=== PATIENT | female | born 1990 | race Caucasian/White ===

== ENCOUNTER 2023-06-22 04:33 | Emergency (ER) | payer OTHER, SELFPAY ==
[2023-06-22 04:43] VITALS: BP 120/90; PULSE 78; RESP 18; TEMP 36.6; O2SAT 98; BMI 37.6
--- NOTE | 2023-06-22 05:00 | ED.NAVMDI1 ---
HPI - Nausea/Vomiting/Diarrhea General Chief complaint: Nausea/Vomiting/Diarrhea Stated complaint: FEVER, VOMITING Time Seen by Provider: 06/22/23 04:56 Source: patient Mode of arrival: walk-in History of Present Illness HPI Narrative: patient presents with recurrent nausea and vomiting on and off over the past 3 days. Episode of diarrhea this AM. Abdominal pain before vomiting.No fever. No known exposure to someone ill. Feels lightheaded MD elicited complaint: Reports nausea, vomiting, diarrhea and abdominal pain Related Data Home Medications Medication Instructions Recorded Confirmed fluoxetine 20 mg capsule (Prozac) 20 mg PO DAILY 06/22/23 06/22/23 fluoxetine 20 mg tablet 20 mg PO DAILY 06/22/23 06/22/23 gabapentin 300 mg capsule 300 mg PO DAILY 06/22/23 06/22/23 Allergies Allergy/AdvReac Type Severity Reaction Status Date / Time No Known Drug Allergies Allergy Verified 06/22/23 04:50 Review of Systems ROS Status of ROS 10 or more systems reviewed and unremarkable except as noted in history and below Exam Constitutional Vital Signs, click to edit/add: Last Vital Signs Temp 97.9 F 06/22/23 04:43 Pulse 78 06/22/23 04:43 Resp 18 06/22/23 04:43 BP 120/90 06/22/23 04:43 Pulse Ox 98 06/22/23 04:43 O2 Del Method Room Air 06/22/23 04:43 Common normals: no apparent distress, oriented x3, healthy appearing and alert Eye Common normals: EOMs intact bilaterally, conjunctivae normal and no scleral icterus Respiratory Common normals: normal respiratory effort, no retractions, no use of accessory muscles and clear to auscultation bilaterally Cardio Common normals: regular rate, regular rhythm, S1 normal heart sound and S2 normal heart sound GI Common normals: Normal to inspection, nondistended, normoactive bowel sounds present, soft to palpation and non-tender Extremity Common normals: normal to inspection and full ROM Neuro Common normals: oriented x3, CN's II-XII intact bilaterally, moves all extremities, no focal motor deficits and no sensory deficits noted Psych Appearance: grossly normal Course Vital Signs Vital signs: Vital Signs Temperature 97.9 F 06/22/23 04:43 Pulse Rate 78 06/22/23 04:43 Respiratory Rate 18 06/22/23 04:43 Blood Pressure 120/90 06/22/23 04:43 Pulse Oximetry 98 06/22/23 04:43 Oxygen Delivery Method Room Air 06/22/23 04:43 Temperature 97.9 F 06/22/23 04:43 Pulse Rate 78 06/22/23 04:43 Respiratory Rate 18 06/22/23 04:43 Blood Pressure 120/90 06/22/23 04:43 Pulse Oximetry 98 06/22/23 04:43 Oxygen Delivery Method Room Air 06/22/23 04:43 MDM - Nausea/Vomiting/Diarrhea MDM Narrative Medical decision making narrative: patient presents with complaint of recurrent vomiting for past 3 days. Not able to keep down broth. episode of diarrhea today. No hematemesis or fever. Feels weak and light headed. treatment includes IV hydration and anti emetics. CT abdomen ordered and report pending. will plan transfer of care to the oncoming physician. Patient to receive additional hydration. Disposition pending evaluation by Dr Paul Lab Data Labs: Lab Results 06/22/23 06/22/23 06/22/23 Range/Units 04:52 05:00 05:10 WBC 8.4 (4.0-11.0) 10^3/uL RBC 4.89 (4.20-5.40) 10^6/uL Hgb 13.0 (12.0-16.0) g/dL Hct 40.5 (36.0-48.0) % MCV 82.8 (81.0-99.0) fL MCH 26.6 L (26.7-34.0) pg MCHC 32.1 (29.9-35.2) g/dL RDW 13.4 (11.0-15.0) % Plt Count 314 (150-450) 10^3/uL MPV 10.0 (9.5-13.5) fL Neut % (Auto) 65.2 (43.0-75.0) % Lymph % (Auto) 28.0 (20.5-60.0) % [place] % (Auto) 4.9 (1.7-12.0) % Eos % (Auto) 1.3 (0.9-7.0) % Baso % (Auto) 0.4 (0.2-2.0) % Neut # (Auto) 5.5 (1.4-6.5) 10^3/uL Lymph # (Auto) 2.3 (1.2-3.8) 10^3/uL [place] # (Auto) 0.4 (0.3-0.8) 10^3/uL Eos # (Auto) 0.1 (0.0-0.7) 10^3/uL Baso # (Auto) 0.0 (0.0-0.1) 10^3/uL Abs Immat Gran (auto) 0.02 (0.00-0.03) 10^3/uL Imm/Tot Granulo (auto) 0.2 (0.0-0.5) % Sodium 137 (136-145) mmol/L Potassium 3.7 (3.5-5.1) mmol/L Chloride 103 (98-107) mmol/L Carbon Dioxide 25.9 (21.0-32.0) mmol/L Anion Gap 11.8 BUN 12.0 (7.0-18.0) mg/dL Creatinine 0.85 (0.55-1.02) mg/dL Est GFR ( Amer) >60 (>=60) Est GFR (Non-Af Amer) >60 (>=60) BUN/Creatinine Ratio 14.1 Glucose 107 H (74-106) mg/dL Lactate 0.8 (0.4-2.0) mmol/L Calcium 9.1 (8.5-10.1) mg/dL Total Bilirubin 0.3 (0.2-1.0) mg/dL AST 16 (15-37) U/L ALT 19 (14-59) U/L Alkaline Phosphatase 86 (46-116) U/L Troponin I High Sens 5.2 (4.0-51.3) pg/mL Total Protein 7.5 (6.4-8.2) g/dL Albumin 3.8 (3.4-5.0) g/dL Globulin 3.7 g/dL Albumin/Globulin Ratio 1.0 Lipase 45.0 L (73.0-393.0) U/L Urine Color Yellow (YELLOW) Urine Clarity Clear (CLEAR) Urine pH 5.5 (5.0-9.0) Ur Specific [place] >=1.030 A (1.005-1.025) Urine Protein Negative (NEG/TRACE) mg/dL Urine Glucose (UA) Negative (NEGATIVE) mg/dL Urine Ketones Negative (NEGATIVE) mg/dL Urine Occult Blood Trace-i (NEGATIVE) Urine Nitrite Negative (NEGATIVE) Urine Bilirubin Negative (NEGATIVE) Urine Urobilinogen 0.2 (0.2-1.0) EU/dL Ur Leukocyte Esterase Small A (NEGATIVE) Urine RBC 5-10 A (0-2) #/HPF Urine WBC 20-50 A (NONE SEEN) #/HPF Ur Squamous Epith Cells Many A (NONE/RARE) #/LPF Urine Crystals Seen A (None Seen) #/HPF Amorphous Sediment Rare Urine Bacteria Moderate A (NONE SEEN) #/HPF Urine Casts None seen (NONE SEEN) #/LPF Urine Mucus Small A (NONE SEEN) Urine Yeast Seen A (NONE SEEN) Ur Culture Indicated? Yes Adenovirus (PCR) Not detected (NOT DETECTE) C. pneumoniae DNA (PCR) Not detected (NOT DETECTE) Coronavirus Type OC43 Not detected (NOT DETECTE) Coronavirus Type HKU1 Not detected (NOT DETECTE) Coronavirus Type 229E Not detected (NOT DETECTE) Coronavirus Type NL63 Not detected (NOT DETECTE) Human Metapneumovir PCR Not detected (NOT DETECTE) M. pneumoniae (PCR) Not detected (NOT DETECTE) Parainfluenza PCR Not detected (NOT DETECTE) Parainfluenza 2 (PCR) Not detected (NOT DETECTE) Parainfluenza 3 (PCR) Not detected (NOT DETECTE) Parainfluenza 4 (PCR) Not detected (NOT DETECTE) RSV (RT-PCR) Not detected (NOT DETECTE) Entero/Rhino (PCR) Not detected (NOT DETECTE) SARS-CoV-2 (PCR) Not detected (NOT DETECTE) Bordetella pertussis (PCR) Not detected (NOT DETECTE) B parapertussis DNA PCR Not detected (NOT DETECTE) Influenza Type A (PCR) Not detected (NOT DETECTE) Influenza Type B (PCR) Not detected (NOT DETECTE) Discharge Plan Discharge Chief Complaint: Nausea/Vomiting/Diarrhea Clinical Impression: Gastroenteritis Patient Disposition: Still a Patient Prescriptions / Home Meds: No Action fluoxetine 20 mg tablet 20 mg PO DAILY gabapentin 300 mg capsule 300 mg PO DAILY fluoxetine [Prozac] 20 mg capsule 20 mg PO DAILY Referrals: ODETTE RODRIGUEZ [Primary Care Provider] - 1 week
--- NOTE | 2023-06-22 05:02 | XR_ITS ---
The [address] [address] Patient Name: SHARIF STOUT MRN: [id number] date: 1990 Sex: F Assigned Patient Location: ER Current Patient Location: ER Accession/Order Number: [id number] Exam Date: 06/22/2023 05:10 Report Date: 06/22/2023 05:29 At the request of: KENDRA TERRY Procedure: XR chest 1V EXAMINATION: XR chest 1V HISTORY: nausea and vomiting COMPARISON: XR chest 03/04/2015 FINDINGS: LUNGS: No significant pulmonary parenchymal abnormalities. VASCULATURE: No increased pulmonary vasculature. PLEURA: No pneumothorax, effusion, or pleural thickening. CARDIAC: No cardiomegaly or cardiac silhouette abnormality. MEDIASTINUM: No visible mass or adenopathy. BONES: No fracture or visible bone lesion. OTHER: Negative. XR/XR chest 1V IMPRESSION: 1. No acute cardiopulmonary process. Electronically authenticated by: EDWIN NORTH Date: 06/22/2023 05:29
[2023-06-22 05:15] LABS: Adenovirus NOT DETECTED (NOT DETECTE); Bordetella parapertussis NOT DETECTED (NOT DETECTE); Coronavirus 229E NOT DETECTED (NOT DETECTE); Coronavirus HKU1 NOT DETECTED (NOT DETECTE); Coronavirus NL63 NOT DETECTED (NOT DETECTE); Coronavirus OC43 NOT DETECTED (NOT DETECTE); Human Metapneumovirus NOT DETECTED (NOT DETECTE); Human Rhinovirus/Enterovirus NOT DETECTED (NOT DETECTE); Influenza A NOT DETECTED (NOT DETECTE); Influenza B NOT DETECTED (NOT DETECTE); Mycoplasma pneumoniae NOT DETECTED (NOT DETECTE); Parainfluenza Virus 1 NOT DETECTED (NOT DETECTE); Parainfluenza Virus 2 NOT DETECTED (NOT DETECTE); Parainfluenza Virus 3 NOT DETECTED (NOT DETECTE); Parainfluenza Virus 4 NOT DETECTED (NOT DETECTE); Respiratory Syncytial Virus NOT DETECTED (NOT DETECTE); SARS-CoV-2 NOT DETECTED (NOT DETECTE)
[2023-06-22 05:18] LABS: Bilirubin Urine NEGATIVE (NEGATIVE); Blood Urine TRACE-I (NEGATIVE); Clarity Urine CLEAR (CLEAR); Color Urine YELLOW (YELLOW); Glucose Urine UA NEGATIVE (NEGATIVE); Ketones Urine NEGATIVE (NEGATIVE); Leukocyte Esterase Urine SMALL (NEGATIVE); Nitrite Urine NEGATIVE (NEGATIVE); Protein Urine NEGATIVE (NEG/TRACE); Specific Gravity Urine >=1.030 (1.005-1.025); Urobilinogen Urine 0.2 EU/dL (0.2-1.0); pH Urine 5.5 (5.0-9.0)
[2023-06-22 05:19] LABS: Basophils Percent Auto 0.4 % (0.2-2.0); Eosinophils Absolute Auto 0.1 10^3/uL (0.0-0.7); Eosinophils Percent Auto 1.3 % (0.9-7.0); Hematocrit 40.5 % (36.0-48.0); Immature Granulocytes Abs Auto 0.02 10^3/uL (0.00-0.03); Immature Granulocytes Pct Auto 0.2 % (0.0-0.5); Lymphocytes Absolute Auto 2.3 10^3/uL (1.2-3.8); Mean Corpuscular HGB Conc 32.1 g/dL (29.9-35.2); Mean Corpuscular Hemoglobin 26.6 pg (26.7-34.0); Mean Corpuscular Volume 82.8 fL (81.0-99.0); Monocytes Absolute Auto 0.4 10^3/uL (0.3-0.8); Monocytes Percent Auto 4.9 % (1.7-12.0); Neutrophils Absolute Auto 5.5 10^3/uL (1.4-6.5); Neutrophils Percent Auto 65.2 % (43.0-75.0); Platelet Count 314 10^3/uL (150-450); Red Blood Count 4.89 10^6/uL (4.20-5.40); Red Cell Distribution Width 13.4 % (11.0-15.0); White Blood Count 8.4 10^3/uL (4.0-11.0)
[2023-06-22 05:20] LABS: Urine Microscopic Indicated YES
--- NOTE | 2023-06-22 05:20 | PC.NURSE ---
patient c/o nausea, vomiting for 3 days. states the first day she thought it was something she ate. she had headache went to bed, woke up with nausea and vomiting. she states she has been nauseous all day. had an episode of chills and sweats in the morninng without fever. 1 episode of diarrhea this morning. states she has not taken anything. headache has since resolved. no respiratory issues or urinary issues.
--- NOTE | 2023-06-22 05:22 | CT_ITS ---
[address] [place], [place] [address] Patient Name: SHARIF STOUT MRN: [id number] date: 1990 Sex: F Assigned Patient Location: ER Current Patient Location: ED.MAIN Accession/Order Number: [id number] Exam Date: 06/22/2023 06:02 Report Date: 06/22/2023 06:55 At the request of: KENDRA MURRAY Procedure: CT abdomen pelvis w con EXAMINATION: CT abdomen pelvis w con HISTORY: vomiting COMPARISON: No relevant comparison available. TECHNIQUE: CT images were created with IV contrast. Axial, Coronal, and Sagittal images. Dose reduction techniques were achieved by using automated exposure control and/or adjustment of mA and/or kV according to patient size and/or use of iterative reconstruction technique. FINDINGS: LUNG BASES: No visible pulmonary or pleural disease. LIVER: No enlargement, atrophy, abnormal density, or significant focal lesion. BILIARY: No visible dilatation or calcification. PANCREAS: No lesion, fluid collection, ductal dilatation, or atrophy. SPLEEN: No enlargement or focal lesion. ADRENALS: No mass or enlargement. KIDNEYS: No mass, obstruction, or calcification. BOWEL/MESENTERY: No visible mass, obstruction, or bowel wall thickening.Surgical clips from cholecystectomy AORTA/VASCULAR: No aneurysm or dissection. RETROPERITONEUM: No mass or adenopathy. LYMPH NODES: No adenopathy. URINARY BLADDER: No visible focal wall thickening, lesion, or calculus. PELVIC ORGANS: Dilated endometrial cavity, correlate with menstrual cycle. Prominent cervix, nonspecific, no clinical concern for PID per Dr. Murray. Small amount of fluid likely physiologic. Left adnexal clip. ABDOMINAL WALL: No mass or hernia. BONES: No bony lesion or fracture. OTHER: Findings discussed with Dr. Murray by telephone 6:35 am. Dictated later due to technical problems. CT/CT abdomen pelvis w con IMPRESSION: No acute intraperitoneal abnormality Electronically authenticated by: NAIN MILLARD Date: 06/22/2023 06:55
[2023-06-22 05:31] LABS: Bacteria Urine MODERATE #/HPF (NONE SEEN); Mucus Urine SMALL (NONE SEEN); Squamous Epithelial Cell Urine MANY #/LPF (NONE/RARE); WBC Urine 20-50 #/HPF (NONE SEEN)
[2023-06-22 05:32] LABS: Amorphous Sediment Urine RARE; Cast Seen? NONE SEEN #/LPF (NONE SEEN); Crystals Seen? Seen #/HPF (None Seen); Urine Culture Indicated YES
[2023-06-22 05:38] LABS: Alanine Aminotransferase 19 U/L (14-59); Albumin Level 3.8 g/dL (3.4-5.0); Alkaline Phosphatase 86 U/L (46-116); Anion Gap 11.8; Aspartate Amino Transferase 16 U/L (15-37); BUN Creatinine Ratio 14.1; Bilirubin Total 0.3 mg/dL (0.2-1.0); Calcium 9.1 mg/dL (8.5-10.1); Carbon Dioxide 25.9 mmol/L (21.0-32.0); Chloride 103 mmol/L (98-107); Estimated GFR (African America >60 (>=60); Estimated GFR (Non-African Ame >60 (>=60); Globulin 3.7 g/dL; Glucose 107 mg/dL (74-106); Potassium 3.7 mmol/L (3.5-5.1); Sodium 137 mmol/L (136-145); Total Protein 7.5 g/dL (6.4-8.2)
[2023-06-22 05:40] LABS: Lactate/Lactic Acid 0.8 mmol/L (0.4-2.0); Troponin I High Sensitivity 5.2 pg/mL (4.0-51.3)
[2023-06-22] MEDS: 0.9 % SODIUM CHLORIDE 1,000 ML 999 ML IV ×2 (06:02→06:03)
[2023-06-22] MEDS: ONDANSETRON PF 4 MG/2 ML VIAL IV (06:02)
== END 2023-06-22 07:50 | disposition home or self-care (01) ==
PROVIDERS: Emergency Provider Internal Medicine; PCP Nurse Practitioner Family
DX: K52.9 Noninfective gastroenteritis and colitis, unspecified (principal); Z79.899 Other long term (current) drug therapy; Z20.822 Contact with and (suspected) exposure to COVID-19
CPT/HCPCS: 0202U; 36415; 71045; 74177; 80053; 81001; 83605; 83690; 84484; 85025; 87086; 96374; 99285; Q9967

== ENCOUNTER 2023-08-09 10:06 | Emergency (ER) | payer OTHER, SELFPAY ==
[2023-08-09 10:36] VITALS: BP 119/62; PULSE 60; RESP 16; TEMP 36.6; O2SAT 99; BMI 39.5
--- NOTE | 2023-08-09 10:55 | US_ITS ---
The [address] [address] Patient Name: SHARIF STOUT MRN: [id number] date: 1990 Sex: F Assigned Patient Location: ER Current Patient Location: ER Accession/Order Number: [id number] Exam Date: 08/09/2023 11:10 Report Date: 08/09/2023 11:55 At the request of: VERNON BLAIR Procedure: US right upper quadrant EXAM: US right upper quadrant; [id number] HISTORY: pain TECHNIQUE: Real-time sonography of the right upper quadrant was performed. Color and spectral Doppler were used to assess select abdominal vasculature. COMPARISON: CT abdomen/pelvis 06/22/2023. FINDINGS: PANCREAS: Normal appearance of the visualized pancreas. GALLBLADDER: No gallstones or sludge. No gallbladder wall thickening or pericholecystic fluid. BILIARY DUCTS: Extrahepatic bile duct at the poonam hepatis measures 1.4 mm. No intrahepatic or extrahepatic ductal dilatation. RIGHT KIDNEY: Kidney measures 9.2 x 4.6 x 4.6 cm. The kidney is within normal limits for size and echogenicity. No hydronephrosis, solid lesion, or stones demonstrated. Doppler signals within normal limits. LIVER: Within normal limits for size and echogenicity. No focal lesion demonstrated. VASCULATURE: -No thrombus within the proximal hepatic veins. -Antegrade flow in the main portal vein and splenic vein. -Portal vein spectral waveform is within normal limits. US/US right upper quadrant IMPRESSION: Normal ultrasound of the right upper quadrant. Electronically authenticated by: MI MAX Date: 08/09/2023 11:55
--- NOTE | 2023-08-09 10:57 | ED_ITS ---
HPI - General Adult General Chief complaint: Abdominal Pain Stated complaint: NAUSEA/ HEADACHE COVID SYMPTOMS Time Seen by Provider: 08/09/23 10:49 Source: patient Mode of arrival: walk-in Limitations: no limitations History of Present Illness HPI narrative: 33-year-old female presents for intermittent pain and vomiting. She has been having this for a month. It seems it started in her upper back and it goes to he r shoulders and then her stomach hurts and then she'll vomit. She'll have it intermittently for a few days and it goes away. She was seen here a month ago and had a negative CAT scan of her abdomen. She seems to be concerned about her gallbladder. Related Data Home Medications Medication Instructions Recorded Confirmed fluoxetine 20 mg capsule (Prozac) 20 mg PO DAILY 06/22/23 06/22/23 fluoxetine 20 mg tablet 20 mg PO DAILY 06/22/23 06/22/23 gabapentin 300 mg capsule 300 mg PO DAILY 06/22/23 06/22/23 Previous Rx's Medication Instructions Recorded ondansetron 8 mg disintegrating 8 mg PO Q8H PRN nausea and 06/22/23 tablet vomiting 48 hours #6 tabs esomeprazole magnesium 40 mg 40 mg PO DAILY 28 days #28 caps 08/09/23 capsule,delayed release (Nexium) Allergies Allergy/AdvReac Type Severity Reaction Status Date / Time No Known Drug Allergies Allergy Verified 08/09/23 10:36 Review of Systems ROS Narrative A ten point review of systems is negative except as noted above. Exam Narrative Exam Narrative: Nurses note and vital signs reviewed and patient is not hypoxic. General: The patient appears well and in no apparent distress. Patient is resting comfortably on cart. Skin: Warm, dry, no pallor noted. There is no rash noted. Head: Normocephalic, atraumatic Eye: Normal conjunctiva, no drainage Ears, Nose, Mouth, and Throat: oral mucosa is moist. Nares patent. Cardiovascular: Regular Rate and Rhythm Respiratory: Patient is in no distress, no accessory muscle use, lungs are clear to auscultation, no wheezing, rales or rhonchi Back: non-tender GI: Normal bowel sounds, no tenderness to palpation, no masses appreciated. No rebound, guarding, or rigidity noted. Musculoskeletal: The patient has no evidence of calf tenderness, no pitting edema, symmetrical pulses noted bilaterally Neurological: A&O, normal speech Psychiatric: Cooperative, mildly anxious Constitutional Vital Signs, click to edit/add: Last Vital Signs Temp 98 F 08/09/23 10:36 Pulse 60 08/09/23 10:36 Resp 16 08/09/23 10:36 BP 119/62 08/09/23 10:36 Pulse Ox 99 08/09/23 10:36 Course Vital Signs Vital signs: Vital Signs Temperature 98 F 08/09/23 10:36 Pulse Rate 60 08/09/23 10:36 Respiratory Rate 16 08/09/23 10:36 Blood Pressure 119/62 08/09/23 10:36 Pulse Oximetry 99 08/09/23 10:36 Temperature 98 F 08/09/23 10:36 Pulse Rate 60 08/09/23 10:36 Respiratory Rate 16 08/09/23 10:36 Blood Pressure 119/62 08/09/23 10:36 Pulse Oximetry 99 08/09/23 10:36 Medical Decision Making MDM Narrative Medical decision making narrative: CAT scan from last month was reviewed. Today's gallbladder ultrasound is negative as is her blood work. The possibility of esophagitis was discussed with the patient and she is prescribed Nexium. She'll follow-up with her PCP. Treatment diagnosis and follow-up were discussed with the patient. Differential Diagnosis Differential Diagnosis: esophagitis, gastroenteritis, anxiety Lab Data Lab results reviewed: Yes I reviewed the patient's lab results Labs: Lab Results 08/09/23 08/09/23 Range/Units 10:46 10:49 WBC 8.7 (4.0-11.0) 10^3/uL RBC 4.55 (4.20-5.40) 10^6/uL Hgb 12.3 (12.0-16.0) g/dL Hct 38.3 (36.0-48.0) % MCV 84.2 (81.0-99.0) fL MCH 27.0 (26.7-34.0) pg MCHC 32.1 (29.9-35.2) g/dL RDW 13.2 (11.0-15.0) % Plt Count 320 (150-450) 10^3/uL MPV 10.3 (9.5-13.5) fL Neut % (Auto) 71.5 (43.0-75.0) % Lymph % (Auto) 24.2 (20.5-60.0) % [place] % (Auto) 3.5 (1.7-12.0) % Eos % (Auto) 0.1 L (0.9-7.0) % Baso % (Auto) 0.2 (0.2-2.0) % Neut # (Auto) 6.2 (1.4-6.5) 10^3/uL Lymph # (Auto) 2.1 (1.2-3.8) 10^3/uL [place] # (Auto) 0.3 (0.3-0.8) 10^3/uL Eos # (Auto) 0.0 (0.0-0.7) 10^3/uL Baso # (Auto) 0.0 (0.0-0.1) 10^3/uL Abs Immat Gran (auto) 0.04 H (0.00-0.03) 10^3/uL Imm/Tot Granulo (auto) 0.5 (0.0-0.5) % Sodium 140 (136-145) mmol/L Potassium 3.8 (3.5-5.1) mmol/L Chloride 105 (98-107) mmol/L Carbon Dioxide 27.2 (21.0-32.0) mmol/L Anion Gap 11.6 BUN 6.0 L (7.0-18.0) mg/dL Creatinine 0.78 (0.55-1.02) mg/dL Est GFR ( Amer) >60 (>=60) Est GFR (Non-Af Amer) >60 (>=60) BUN/Creatinine Ratio 7.7 Glucose 96 (74-106) mg/dL Calcium 9.1 (8.5-10.1) mg/dL Total Bilirubin 0.4 (0.2-1.0) mg/dL Direct Bilirubin 0.1 (0.0-0.2) mg/dL AST 7 L (15-37) U/L ALT 16 (14-59) U/L Alkaline Phosphatase 88 (46-116) U/L Total Protein 7.5 (6.4-8.2) g/dL Albumin 3.7 (3.4-5.0) g/dL Globulin 3.8 g/dL Albumin/Globulin Ratio 1.0 Amylase 29 (25-115) U/L Serum HCG, Qual Negative (NEGATIVE) Imaging Data gallbladder ultrasound: Radiologist's impression: Procedure: US right upper quadrant EXAM: US right upper quadrant; [id number] HISTORY: pain TECHNIQUE: Real-time sonography of the right upper quadrant was performed. Color and spectral Doppler were used to assess select abdominal vasculature. COMPARISON: CT abdomen/pelvis 06/22/2023. FINDINGS: PANCREAS: Normal appearance of the visualized pancreas. GALLBLADDER: No gallstones or sludge. No gallbladder wall thickening or pericholecystic fluid. BILIARY DUCTS: Extrahepatic bile duct at the poonam hepatis measures 1.4 mm. No intrahepatic or extrahepatic ductal dilatation. RIGHT KIDNEY: Kidney measures 9.2 x 4.6 x 4.6 cm. The kidney is within normal limits for size and echogenicity. No hydronephrosis, solid lesion, or stones demonstrated. Doppler signals within normal limits. LIVER: Within normal limits for size and echogenicity. No focal lesion demonstrated. VASCULATURE: -No thrombus within the proximal hepatic veins. -Antegrade flow in the main portal vein and splenic vein. -Portal vein spectral waveform is within normal limits. IMPRESSION: Normal ultrasound of the right upper quadrant. Electronically authenticated by: MI MAX Date: 08/09/2023 11:55 Discharge Plan Discharge Chief Complaint: Abdominal Pain Clinical Impression: Nausea & vomiting Patient Disposition: Home, Self-Care Time of Disposition Decision: 13:22 Condition: Good Mode of Transportation: Private Vehicle Prescriptions / Home Meds: New esomeprazole magnesium [Nexium] 40 mg capsule,delayed release(DR/EC) 40 mg PO DAILY 28 Days Qty: 28 0RF No Action fluoxetine 20 mg tablet 20 mg PO DAILY gabapentin 300 mg capsule 300 mg PO DAILY fluoxetine [Prozac] 20 mg capsule 20 mg PO DAILY ondansetron 8 mg tablet,disintegrating 8 mg PO Q8H PRN (Reason: nausea and vomiting) 2 Days Qty: 6 0RF Instructions: Acute Nausea and Vomiting (ED) Additional Instructions: Follow up with Odette Rodriguez Stand Alone Forms: Portal Instructions Referrals: ODETTE RODRIGUEZ [Primary Care Provider] - 1 week
[2023-08-09] MEDS: ONDANSETRON PF 4 MG/2 ML VIAL IV ×2 (11:06→11:50)
[2023-08-09] MEDS: 0.9 % SODIUM CHLORIDE 1,000 ML 1000 ML IV (11:06)
[2023-08-09 11:12] LABS: Anion Gap 11.6; BUN Creatinine Ratio 7.7; Calcium 9.1 mg/dL (8.5-10.1); Carbon Dioxide 27.2 mmol/L (21.0-32.0); Chloride 105 mmol/L (98-107); Estimated GFR (African America >60 (>=60); Estimated GFR (Non-African Ame >60 (>=60); Glucose 96 mg/dL (74-106); Potassium 3.8 mmol/L (3.5-5.1); Sodium 140 mmol/L (136-145)
[2023-08-09 11:14] LABS: Basophils Percent Auto 0.2 % (0.2-2.0); Eosinophils Percent Auto 0.1 % (0.9-7.0); Hematocrit 38.3 % (36.0-48.0); Hemoglobin 12.3 g/dL (12.0-16.0); Immature Granulocytes Abs Auto 0.04 10^3/uL (0.00-0.03); Immature Granulocytes Pct Auto 0.5 % (0.0-0.5); Lymphocytes Absolute Auto 2.1 10^3/uL (1.2-3.8); Lymphocytes Percent Auto 24.2 % (20.5-60.0); Mean Corpuscular HGB Conc 32.1 g/dL (29.9-35.2); Mean Corpuscular Volume 84.2 fL (81.0-99.0); Mean Platelet Volume 10.3 fL (9.5-13.5); Monocytes Absolute Auto 0.3 10^3/uL (0.3-0.8); Monocytes Percent Auto 3.5 % (1.7-12.0); Neutrophils Absolute Auto 6.2 10^3/uL (1.4-6.5); Neutrophils Percent Auto 71.5 % (43.0-75.0); Platelet Count 320 10^3/uL (150-450); Red Blood Count 4.55 10^6/uL (4.20-5.40); Red Cell Distribution Width 13.2 % (11.0-15.0); White Blood Count 8.7 10^3/uL (4.0-11.0)
[2023-08-09 11:17] LABS: Alanine Aminotransferase 16 U/L (14-59); Albumin Level 3.7 g/dL (3.4-5.0); Alkaline Phosphatase 88 U/L (46-116); Amylase 29 U/L (25-115); Aspartate Amino Transferase 7 U/L (15-37); Bilirubin Direct 0.1 mg/dL (0.0-0.2); Bilirubin Total 0.4 mg/dL (0.2-1.0); Globulin 3.8 g/dL; Total Protein 7.5 g/dL (6.4-8.2)
[2023-08-09] MEDS: KETOROLAC TROMETHAMINE 30 MG/ML VIAL IVP (11:50)
[2023-08-09 12:42] LABS: HCG Qualitative NEGATIVE (NEGATIVE)
== END 2023-08-09 13:34 | disposition home or self-care (01) ==
PROVIDERS: Emergency Provider Emergency Medicine; PCP Nurse Practitioner Family
DX: R11.2 Nausea with vomiting, unspecified (principal); Z79.899 Other long term (current) drug therapy
CPT/HCPCS: 36415; 76705; 80048; 80076; 82150; 83690; 84703; 85025; 96361; 96374; 96375; 96376; 99285

== ENCOUNTER 2023-09-29 10:05 | Emergency (ER) | payer BC, OTHER, SELFPAY ==
[2023-09-29 10:08] VITALS: BP 99/57; PULSE 58; RESP 18; TEMP 36.4; O2SAT 99; BMI 39.4
--- NOTE | 2023-09-29 10:14 | XR_ITS ---
The [address] [address] Patient Name: SHARIF STOUT MRN: [id number] date: 1990 Sex: F Assigned Patient Location: ER Current Patient Location: Accession/Order Number: [id number] Exam Date: 09/29/2023 11:20 Report Date: 09/29/2023 12:23 At the request of: VERNON BLAIR Procedure: XR hand RT min 3V EXAM: XR hand RT min 3V HISTORY: injury COMPARISON: None. TECHNIQUE: FINDINGS: No acute fracture, dislocation, or joint pathology. Normal mineralization and alignment. The soft tissues are normal. XR/XR hand RT min 3V IMPRESSION: 1. No acute osseous abnormality. 2. No radiopaque foreign body. Electronically authenticated by: SOSA MORRISON Date: 09/29/2023 12:23
--- NOTE | 2023-09-29 10:17 | ED.UPPEXIN1 ---
HPI - Extremity Injury (Upper) General Chief Complaint: Extremity Injury, Upper Stated Complaint: UPPER EXTREMITY INJURY TO RIGHT HAND Time Seen by Provider: 09/29/23 10:07 Source: patient Mode of arrival: walk-in History of Present Illness HPI narrative: 33-year-old female presents for a laceration to her right 5th finger sustained on broken glass just before coming into the emergency department. She had a tetanus shot two or three years ago. No weakness or numbness and no other injury was sustained. Related Data Home Medications Medication Instructions Recorded Confirmed fluoxetine 20 mg capsule (Prozac) 20 mg PO DAILY 06/22/23 06/22/23 fluoxetine 20 mg tablet 20 mg PO DAILY 06/22/23 06/22/23 gabapentin 300 mg capsule 300 mg PO DAILY 06/22/23 06/22/23 Previous Rx's Medication Instructions Recorded ondansetron 8 mg disintegrating 8 mg PO Q8H PRN nausea and 06/22/23 tablet vomiting 48 hours #6 tabs esomeprazole magnesium 40 mg 40 mg PO DAILY 28 days #28 caps 08/09/23 capsule,delayed release (Nexium) Allergies Allergy/AdvReac Type Severity Reaction Status Date / Time No Known Drug Allergies Allergy Verified 08/09/23 10:36 Review of Systems ROS Narrative A ten point review of systems is negative except as noted above. Exam Narrative Exam Narrative: Nurses note and vital signs reviewed and patient is not hypoxic. General: The patient appears well and in no apparent distress. Patient is resting comfortably on cart. Skin: Warm, dry, no pallor noted. There is no rash noted. Head: Normocephalic, atraumatic Eye: Normal conjunctiva, no drainage Ears, Nose, Mouth, and Throat: oral mucosa is moist. Nares patent. Cardiovascular: Regular Rate and Rhythm Respiratory: Patient is in no distress, no accessory muscle use, lungs are clear to auscultation, no wheezing, rales or rhonchi Back: non-tender GI: nontender Musculoskeletal: right 5th finger has irregular 2.5 laceration at the base on the ulnar side. DIP and PIP a full range of motion. Neurological: A&O, normal speech Psychiatric: Cooperative Constitutional Vital Signs, click to edit/add: Last Vital Signs Temp 97.5 F L 09/29/23 10:08 Pulse 64 09/29/23 11:41 Resp 18 09/29/23 11:41 BP 110/82 09/29/23 11:41 Pulse Ox 100 09/29/23 11:41 O2 Del Method Room Air 09/29/23 10:08 Course Vital Signs Vital signs: Vital Signs Temperature 97.5 F L 09/29/23 10:08 Pulse Rate 58 L 09/29/23 10:08 Respiratory Rate 18 09/29/23 10:08 Blood Pressure 99/57 09/29/23 10:08 Pulse Oximetry 99 09/29/23 10:08 Oxygen Delivery Method Room Air 09/29/23 10:08 Temperature 97.5 F L 09/29/23 10:08 Pulse Rate 64 09/29/23 11:41 Respiratory Rate 18 09/29/23 11:41 Blood Pressure 110/82 09/29/23 11:41 Pulse Oximetry 100 09/29/23 11:41 Oxygen Delivery Method Room Air 09/29/23 10:08 MDM - Extremity Injury (Upper) MDM Narrative Medical decision making narrative: sutures are to be removed in a week. Treatment diagnosis and follow-up were discussed with the patient. Discharge Plan Discharge Chief Complaint: Extremity Injury, Upper Clinical Impression: Finger laceration Patient Disposition: Home, Self-Care Time of Disposition Decision: 11:43 Condition: Good Mode of Transportation: Private Vehicle Prescriptions / Home Meds: No Action fluoxetine 20 mg tablet 20 mg PO DAILY gabapentin 300 mg capsule 300 mg PO DAILY fluoxetine [Prozac] 20 mg capsule 20 mg PO DAILY ondansetron 8 mg tablet,disintegrating 8 mg PO Q8H PRN (Reason: nausea and vomiting) 2 Days Qty: 6 0RF esomeprazole magnesium [Nexium] 40 mg capsule,delayed release(DR/EC) 40 mg PO DAILY 28 Days Qty: 28 0RF Instructions: Finger Laceration (ED) Additional Instructions: sutures to be removed in a week Stand Alone Forms: Portal Instructions Referrals: ODETTE RODRIGUEZ [Primary Care Provider] - 1 week Procedures ED Procedure Instructions Procedures Procedures: the following procedure was performed by me. Local infiltration was carried out with one percent lidocaine without epinephrine resulting in complete skin anesthesia. The area was prepped with Betadine ?3 and draped sterilely. The wound was then closed with six 5-0 Ethilon sutures resulting in good skin reapproximation, no complications. Finger splint applied and application checked by me and found to be appropriate, he is neurovascularly intact.
[2023-09-29] MEDS: LIDOCAINE HCL 1% 100 MG/10 ML MDV INJ (10:47)
[2023-09-29 11:41] VITALS: BP 110/82; PULSE 64; RESP 18; O2SAT 100
== END 2023-09-29 12:02 | disposition home or self-care (01) ==
PROVIDERS: Emergency Provider Emergency Medicine; PCP Nurse Practitioner Family
DX: S61.216A Laceration without foreign body of right little finger without damage to nail, initial encounter (principal); W25.XXXA Contact with sharp glass, initial encounter; Z79.899 Other long term (current) drug therapy
CPT/HCPCS: 12001; 73130; 99283

== ENCOUNTER 2024-10-20 10:32 | Outpatient (OUT) | payer BC, SELFPAY ==
--- OUTSIDE RECORDS SUMMARY | 2024-10-20 10:37 | XMS_ITS | CCD ---
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 Name Role Phone ODETTE RODRIGUEZ Primary Care Unavailable JAMMIE DONOVAN Attending Unavailable ISAIAS .KANDI Consulting Unavailcheyenne DELGADO ., JAMMIE Admitting Unavailable GAY CLANCY Consulting Unavailable ODETTE RODRIGUEZ Attending Unavailable JENNIFER, ODETTE Admitting Unavailable JENNIFER, ODETTE Primary Care Unavailable ODETTE RODRIGUEZ Consulting Unavailable ODETTE RODRIGUEZ Primary Care Unavailable KENDRA TERRY Consulting Unavailable KENDRA TERRY Attending Unavailable KENDRA TERRY Admitting Unavailable Greg Peterson Attending Unavailable Jose Luis CHANG Attending Unavailable NIKA OJEDA Attending UnavailMalachi Cabrera MD Primary Care Provider Nika Ojeda NP Unavailable Medications Current Medications Medication Drug Class(es) Dates Sig (Normalized) Sig (Original) amitriptyline hydrochloride 25 mg oral tablet (2 sources) Tricyclic Antidepressant Start: 08-27-2024 take 1 tablet by mouth once daily at bedtime amitriptyline (Elavil) 25 MG tablet TAKE 1 TABLET BY MOUTH EVERY DAY AT BEDTIME FOR 30 DAYS 08/27/2024 Active escitalopram 10 mg oral tablet (2 sources) Serotonin Reuptake Inhibitor Start: 07-26-2024 take 0.5 tablet by mouth once daily, then take 1 tablet by mouth once daily escitalopram (Lexapro) 10 MG tablet TAKE 1/2 TABLET BY MOUTH DAILY FOR THE FIRST WEEK,THEN INCREASE TO 1 TABLET BY MOUTH DAILY 07/26/2024 Active gabapentin 300 mg oral capsule (2 sources) Anti-epileptic Agent Start: 08-24-2024 take 1 capsule by mouth once daily at bedtime gabapentin (Neurontin) 300 MG capsule TAKE 1 CAPSULE BY MOUTH EVERYDAY AT BEDTIME 08/24/2024 Active SUMAtriptan 100 mg oral tablet (2 sources) Serotonin-1b and Serotonin-1d Receptor Agonist Start: 08-27-2024 SUMAtriptan (Imitrex) 100 MG tablet TAKE 1 TAB ONCE A DAY NEEDED FOR PAIN AT ONSET OF HEADACHE *MAY REPEAT 1 TAB IN 2 HOURS 08/27/2024 Active tiZANidine 2 mg oral capsule (2 sources) Central alpha-2 Adrenergic Agonist Start: 09-17-2024 End: 10-01-2024 take 1 capsule by mouth once tiZANidine (Zanaflex) 2 MG capsule Indications: Acute bilateral low back pain with left-sided sciatica Take 1 capsule (2 mg) by mouth every 12 (twelve) hours if needed for muscle spasms for up to 14 days 28 capsule 09/17/2024 10/01/2024 Active Problems Active Problems Problem Classification Problem Date Documented Da te Episodic/Chronic Administrative/social admission (3 sources) First encounter by subject; Translations: [Persons encountering health services in other specified circumstances] Onset: 09-17-2024 09-17-2024 Episodic Allergic reactions (1 source) Allergy, unspecified, initial encounter; Translations: [ALLERGY UNSPECIFIED INITIAL ENCNTR] Onset: 12-28-2022 Episodic Diabetes or abnormal glucose tolerance complicating ; childbirth; or the puerperium (3 sources) History of gestational diabetes mellitus; Translations: [Personal history of gestational diabetes] Onset: 09-17-2024 09-17-2024 Episodic Mood disorders (7 sources) Mood disorder; Translations: [Unspecified mood [affective] disorder] Onset: 09-17-2024 09-17-2024 Chronic Other aftercare (1 source) Other pantographer (current) drug therapy; Translations: [OTH FDC CURRENT DRUG THERAPY] Onset: 12-28-2022 Episodic Other skin disorders (3 sources) Rash and other nonspecific skin eruption; Translations: [RASH OTH NONSPECIFIC SKIN ERUPTION] Onset: 12-26-2022 Episodic Residual codes; unclassified (5 sources) Obstructive sleep apnea syndrome; Translations: [Obstructive sleep apnea (adult) (pediatric)] Onset: 09-17-2024 09-17-2024 Chronic Spondylosis; intervertebral disc disorders; other back problems (8 sources) Lumbago with sciatica, left side; Translations: [Lumbago with sciatica, right side] Onset: 11-25-2022 09-17-2024 Episodic Substance-related disorders (7 sources) History of substance abuse; Translations: [Other psychoactive substance abuse, in remission] Onset: 09-17-2024 09-17-2024 Chronic Unclassified (2 sources) LOW BACK PAIN, UNSPECIFIED; Translations: [LOW BACK PAIN, UNSPECIFIED] Onset: 11-25-2022 Past or Other Problems Problem Classification Problem Date Documented Da te Episodic/Chronic Deficiency and other anemia (1 source) Anemia, unspecified; Translations: [ANEMIA UNSPECIFIED] Onset: 08-05-2022 Episodic Diabetes mellitus without complication (1 source) Other abnormal glucose; Translations: [OTHER ABNORMAL GLUCOSE] Onset: 08-05-2022 Episodic Unclassified (1 source) LOW BACK PAIN, UNSPECIFIED; Translations: [LOW BACK PAIN, UNSPECIFIED] Onset: 11-23-2022 Results Test Name Value Interpretation Reference Range Facility Lipase Levelon 08-09-2023 Lipase [Catalytic activity/Vol] 22 U/L Normal 13-58 [facility] Comment on above: Performed By: #### 2 [id number] #### [facility] [address] [place] [address] Physician Orderon 08-09-2023 Physician Order [id number] #[id number]:127 Normal [facility] CT LSPINE WO CONon 3 CT LSPINE WO CON EXAM: CT LSPINE WO CON HISTORY: DORSALGIA, UNSPECIFIED COMPARISON: Chest radiographs from 03/04/2015. TECHNIQUE: Noncontrast CT was obtained through the lumbar spine. Dose reduction techniques were achieved by using automated exposure control and/or adjustment of mA and/or kV according to patient size and/or use of iterative reconstruction technique. FINDINGS: Transitional lumbosacral anatomy. On the previous chest radiograph series there are 13 ribs. There 4 lumbar type vertebral bodies. Therefore for discussion purposes on this examination there are small ribs at L1. Osseous: The vertebral body heights are maintained. No fracture.. Soft tissues: The abdominal aorta is normal in caliber. No retroperitoneal lymphadenopathy. Disc levels: T12-L1: No disc protrusion, spinal canal stenosis, or neural foraminal stenosis. L1-L2: No disc protrusion, spinal canal stenosis, or neural foraminal stenosis. L2-L3: No disc protrusion, spinal canal stenosis, or neural foraminal stenosis. L3-L4: No disc protrusion, spinal canal stenosis, or neural foraminal stenosis. L4-L5: No disc protrusion, spinal canal stenosis, or neural foraminal stenosis. L5-S1: No disc protrusion, spinal canal stenosis, or neural foraminal stenosis. IMPRESSION: 1. Normal of the lumbar spine survey. 2. Transitional lumbosacral anatomy. Electronically authenticated by: SOSA MORRISON Date: 2022-11-23 16:36 Normal [facility] INSULINon 08-04-2022 Insulin 6.0 uIU/mL Normal 2.6-24.9 [facility] Comment on above: Performed By: #### I NSULIN #### [facility] [address] [address] [address] Byron Glynn T4, T3U, FTI LABCORPon 08-04 Free Thyroxine Index 2.0 Normal 1.2-4.9 [facility] Comment on above: Performed By: #### T HYLC #### [facility] [address] [address] [address] Byron Glynn T3 Uptake 29 % Normal 24-39 [facility] Comment on above: Performed By: #### T HYLC #### [facility] [address] [address] [address] Byron Glynn T4 [Mass/Vol] 6.8 ug/dL Normal 4.5-12.0 [facility] Comment on above: Performed By: #### T HYLC #### [facility] [address] [address] [address] yBron Glynn CBC AUTO DIFFon 08-03-2022 BASO # 0.0 103/ul Normal 0.0-0.1 [facility] Comment on above: Performed By: #### C BC #### [facility] [address] [address] [address] Byron Glynn Basophils/100 WBC (Bld) 0.4 % Normal 0.2-2.0 [facility] Comment on above: Performed By: #### C BC #### [facility] [address] [place] [address] Dr. Byron Glynn EO # 0.1 103/ul Normal 0.0-0.7 [facility] Comment on above: Performed By: #### C BC #### [facility] [address] [place] [address] Dr. Byron Glynn Eosinophils/100 WBC (Bld) 0.6 % Critically low 0.9-7.0 [facility] Comment on above: Performed By: #### C BC #### [facility] [address] [place] [address] Dr. Byron Glynn Erythrocyte distribution width (RBC) [Ratio] 13.7 % Normal 11.0-15.0 [facility] Comment on above: Performed By: #### C BC #### [facility] [address] [place] [address] Dr. Byron Glynn Hematocrit (Bld) [Volume fraction] 37.8 % Normal 36.0-48.0 [facility] Comment on above: Performed By: #### C BC #### [facility] [address] [place] [address] Dr. Byron Glynn Hemoglobin (Bld) [Mass/Vol] 11.8 g/dL Critically low 12.0-16.0 [facility] Comment on above: Performed By: #### C BC #### [facility] [address] [place] [address] Dr. Byron Glynn IG # 0.03 10e3/ul Normal 0.00-0.03 [facility] Comment on above: Performed By: #### C BC #### [facility] [address] [place] [address] Dr. Byron Glynn IG % 0.3 % Normal 0.0-0.5 [facility] Comment on above: Performed By: #### C BC #### [facility] [address] [place] [address] Dr. Byron Glynn LYMPH # 1.4 103/ul Normal 1.2-3.8 [facility] Comment on above: Performed By: #### C BC #### [facility] [address] [place] [address] Dr. Byron Glynn Lymphocytes/100 WBC (Bld) 12.8 % Critically low 20.5-60.0 [facility] Comment on above: Performed By: #### C BC #### [facility] [address] [place] [address] Dr. Byron Glynn MANUAL DIFF REQ NO Normal [facility] Comment on above: Performed By: #### C BC #### [facility] [address] [place] [address] Dr. Byron Glynn MCH (RBC) [Entitic mass] 25.8 pg Critically low 26.7-34.0 [facility] Comment on above: Performed By: #### C BC #### [facility] [address] [place] [address] Dr. Byron Glynn MCHC (RBC) [Mass/Vol] 31.2 g/dL Normal 29.9-35.2 [facility] Comment on above: Performed By: #### C BC #### [facility] [address] [place] [address] Dr. Byron Glynn MCV (RBC) [Entitic vol] 82.5 fL Normal 81.0-99.0 [facility] Comment on above: Performed By: #### C BC #### [facility] [address] [place] [address] Dr. Byron Glynn MONO # 0.5 103/ul Normal 0.3-0.8 [facility] Comment on above: Performed By: #### C BC #### [facility] [address] [place] [address] Dr. Byron Glynn Monocytes/100 WBC (Bld) 4.9 % Normal 1.7-12.0 [facility] Comment on above: Performed By: #### C BC #### [facility] [address] [place] [address] Dr. Byron Glynn NEUT # 8.7 103/ul Critically high 1.4-6.5 [facility] Comment on above: Performed By: #### C BC #### [facility] [address] [address] [address] Byron Glynn Neutrophils/100 WBC (Bld) 81.0 % Critically high 43.0-75.0 [facility] Comment on above: Performed By: #### C BC #### [facility] [address] [address] [address] Byron Glynn Platelet mean volume (Bld) [Entitic vol] 10.3 fL Normal 9.5-13.5 [facility] Comment on above: Performed By: #### C BC #### [facility] [address] [address] [address] Byron Glynn PLT 338 103/ul Normal 150-450 [facility] Comment on above: Performed By: #### C BC #### [facility] [address] [place] [address] Dr. Byron Glynn RBC 4.58 106/ul Normal 4.20-5.40 [facility] Comment on above: Performed By: #### C BC #### [facility] [address] [place] [address] Dr. Byron Glynn WBC 10.7 103/ul Normal 4.0-11.0 [facility] Comment on above: Performed By: #### C BC #### [facility] [address] [place] [address] Dr. Byron Glynn GLYCOHEMOGLOBIN A1Con 2021 ADA RECOMMENDATION SEE BELOW Normal [facility] Comment on above: Result Comment: ADA RECOMMENDED LIMIT 4.0 - 6.0 ADA THERAPEUTIC TARGET < 7.0 ACTION SUGGESTED > 7.0 Performed By: #### A 1C #### [facility] [address] [place] [address] Dr. Byron Glynn Glucose [Mass/Vol] 105 mg/dL Normal [facility] Comment on above: Performed By: #### A 1C #### [facility] [address] [place] [address] Dr. Byron Glynn HbA1c (Bld) [Mass fraction] 5.3 % Normal 4.5-6.2 [facility] Comment on above: Performed By: #### A 1C #### [facility] [address] [address] [address] Byron Glynn IRONon 08-03-2022 Iron [Mass/Vol] 31.0 ug/dL Critically low 50.0-170.0 [facility] Comment on above: Performed By: #### I DA #### [facility] [address] [address] [address] Byron Glynn LIPID PROFILEon 08-03-2022 CHOL-HDL RATIO NORM SEE BELOW Normal [facility] Comment on above: Result Comment: 3.3 - 4.4 LOW RISK 4.4 - 7.1 AVERAGE RISK 7.1 - 11.0 MODERATE RISK >11.0 HIGH RISK Performed By: #### C MP, TSH, LIPID #### [facility] [address] [place] [address] Dr. Byron Glynn Cholesterol [Mass/Vol] 186 mg/dL Normal <=200 [facility] Comment on above: Performed By: #### C MP, TSH, LIPID #### [facility] [address] [address] [address] Byron Glynn Cholesterol in HDL [Mass/Vol] 62 mg/dL Critically high 40-60 [facility] Comment on above: Performed By: #### C MP, TSH, LIPID #### [facility] [address] [place] [address] Dr. Byron Glynn Cholesterol in LDL [Mass/Vol] 116.0 mg/dL Normal [facility] Comment on above: Performed By: #### C MP, TSH, LIPID #### [facility] [address] [address] [address] Byron Glynn Cholesterol.total/Cho lesterol in HDL [Mass ratio] 3.0 {ratio} Normal [facility] Comment on above: Performed By: #### C MP, TSH, LIPID #### [facility] [address] [place] [address] Dr. Byron Glynn HDL NORMAL > or = 60 mg/dl - LOW CARDIOVASCULAR RISK <40 mg/dl - HIGH CARDIOVASCULAR RISK Normal [facility] Comment on above: Performed By: #### C MP, TSH, LIPID #### [facility] [address] [place] [address] Dr. Byron Glynn LDL CALC NORMAL SEE BELOW Normal [facility] Comment on above: Result Comment: <100 mg/dl OPTIMAL 100 - 129 mg/dl NEAR OR ABOVE OPTIMAL 130 - 159 mg/dl BORDERLINE HIGH 160 - 189 mg/dl HIGH >190 mg/dl VERY HIGH Performed By: #### C MP, TSH, LIPID #### [facility] [address] [address] [address] Byron Glynn Triglyceride [Mass/Vol] 40 mg/dL Normal <=150 [facility] Comment on above: Performed By: #### C MP, TSH, LIPID #### [facility] [address] [place] [address] Dr. Byron Glynn VLDL CALC 8.0 mg/dL Normal [facility] Comment on above: Performed By: #### C MP, TSH, LIPID #### [facility] [address] [place] [address] Dr. Byron Glynn PROF 14(COMP METB)on 022 Albumin [Mass/Vol] 3.5 g/dL Normal 3.4-5.0 [facility] Comment on above: Performed By: #### C MP, TSH, LIPID #### [facility] [address] [place] [address] Dr. Byron Glynn Albumin/Globulin [Mass ratio] 0.9 {ratio} Normal [facility] Comment on above: Performed By: #### C MP, TSH, LIPID #### [facility] [address] [place] [address] Dr. Byron Glynn ALP [Catalytic activity/Vol] 109 U/L Normal 46-116 [facility] Comment on above: Performed By: #### C MP, TSH, LIPID #### [facility] [address] [place] [address] Dr. Byron Glynn ALT [Catalytic activity/Vol] 16 U/L Normal 14-59 [facility] Comment on above: Performed By: #### C MP, TSH, LIPID #### [facility] [address] [place] [address] Dr. Byron Glynn Anion gap [Moles/Vol] 12.1 mmol/L Normal [facility] Comment on above: Performed By: #### C MP, TSH, LIPID #### [facility] [address] [address] [address] Byron Glynn AST [Catalytic activity/Vol] 15 U/L Normal 15-37 [facility] Comment on above: Performed By: #### C MP, TSH, LIPID #### [facility] [address] [address] [address] Byron Glynn Bilirubin [Mass/Vol] 0.4 mg/dL Normal 0.2-1.0 [facility] Comment on above: Performed By: #### C MP, TSH, LIPID #### [facility] [address] [place] [address] Dr. Byron Glynn Calcium [Mass/Vol] 9.3 mg/dL Normal 8.5-10.1 [facility] Comment on above: Performed By: #### C MP, TSH, LIPID #### [facility] [address] [place] [address] Dr. Byron Glynn Chloride [Moles/Vol] 105 mmol/L Normal 98-107 [facility] Comment on above: Performed By: #### C MP, TSH, LIPID #### [facility] [address] [place] [address] Dr. Byron Glynn CO2 [Moles/Vol] 27.9 mmol/L Normal 21.0-32.0 [facility] [place] Comment on above: Performed By: #### C MP, TSH, LIPID #### [facility] [address] [place] [address] Dr. Byron Glynn Creatinine [Mass/Vol] 0.79 mg/dL Normal 0.55-1.02 [facility] Comment on above: Performed By: #### C MP, TSH, LIPID #### [facility] [address] [address] [address] Byron Glynn EGFR-AF OMANI >60 Normal >=60 [facility] Comment on above: Performed By: #### C MP, TSH, LIPID #### [facility] [address] [address] [address] Byron Glynn EGFR-NON AF OMANI >60 Normal >=60 [facility] Comment on above: Performed By: #### C MP, TSH, LIPID #### [facility] [address] [address] [address] Byron Glynn Globulin (S) [Mass/Vol] 3.8 g/dL Normal [facility] Comment on above: Performed By: #### C MP, TSH, LIPID #### [facility] [address] [address] [address] Byron Glynn Glucose [Mass/Vol] 85 mg/dL Normal 74-106 [facility] Comment on above: Performed By: #### C MP, TSH, LIPID #### [facility] [address] [place] [address] Dr. Byron Glynn Potassium [Moles/Vol] 4.0 mmol/L Normal 3.5-5.1 [facility] Comment on above: Performed By: #### C MP, TSH, LIPID #### [facility] [address] [address] [address] Byron Glynn Protein [Mass/Vol] 7.3 g/dL Normal 6.4-8.2 [facility] Comment on above: Performed By: #### C MP, TSH, LIPID #### [facility] [address] [place] [address] Dr. Byron Glynn Sodium [Moles/Vol] 141 mmol/L Normal 136-145 [facility] Comment on above: Performed By: #### C MP, TSH, LIPID #### [facility] [address] [address] [address] Byron Glynn Urea nitrogen [Mass/Vol] 6.0 mg/dL Critically low 7.0-18.0 [facility] Comment on above: Performed By: #### C MP, TSH, LIPID #### [facility] [address] [address] [address] Byron Glynn Urea nitrogen/Creatinine [Mass ratio] 7.6 mg/mg Normal [facility] Comment on above: Performed By: #### C MP, TSH, LIPID #### [facility] [address] [place], [place] [address] Dr. Byron Glynn TSHon 08-03-2022 TSH 0.809 uIU/mL Normal 0.358-3.740 [facility] Comment on above: Performed By: #### C MP, TSH, LIPID #### [facility] [address] [place], [place] [address] Dr. Byron Glynn COVID-19 Lab [facility] 04-30-20 20 COVID-19 Lab [facility]onna Not Detected Normal Not Detected [facility] Comment on above: Order Comment: Healt hcare Worker?: Y Result Comment: This test was developed and its performance characteristics determined by [employer]. This test has not been FDA cleared or approved. This test has been authorized by FDA under an Emergency Use Authorization (EUA). This test is only authorized for the duration of time the declaration that circumstances exist justifying the authorization of the emergency use of in vitro diagnostic tests for detection of SARS-CoV-2 virus and/or diagnosis of COVID-19 infection under section 564(b)(1) of the Act, 21 U.S.C. 360bbb-3(b)(1), unless the authorization is terminated or revoked sooner. When diagnostic testing is negative, the possibility of a false negative result should be considered in the context of a patient's recent exposures and the presence of clinical signs and symptoms consistent with COVID-19. An individual without symptoms of COVID-19 and who is not shedding SARS-CoV-2 virus would expect to have a negative (not detected) result in this assay. PERFORMED BY: [facility] [address] [place] [address] PATHOLOGIST ROD POINTER ROBER GILES M.D. Performed By: #### C ORONAVIRUS #### [facility] , Vital Signs Date Time Vital Sign Value Performing Clinician Jeffrey key 09-17-2024 15:22-0500 Body height 170.2 cm Nika Ojeda NP Work Phone: [facility] 09-17-2024 15:22-0500 Body mass index (BMI) [Ratio] 34.27 kg/m2 Nika Murphypatrick ADVISORY INTERN Work Phone: [facility] 09-17-2024 15:22-0500 Body temperature 98.71 [degF] Nika Murphypatrick ADVISORY INTERN Work Phone: [facility] 09-17-2024 15:22-0500 Body weight 99.25 kg Nika Murphypatrick ADVISORY INTERN Work Phone: [facility] 09-17-2024 15:22-0500 Diastolic blood pressure 68 mm[Hg] Nika Ojeda ADVISORY INTERN Work Phone: [facility] 09-17-2024 15:22-0500 Heart rate 58 /min Nika Ojeda ADVISORY INTERN Work Phone: [facility] 09-17-2024 15:22-0500 Respiratory rate 16 /min Nika Ojeda ADVISORY INTERN Work Phone: [facility] 09-17-2024 15:22-0500 SaO2% (BldA) [Mass fraction] 99 % Nika Olverazpatrick ADVISORY INTERN Work Phone: [facility] 09-17-2024 15:22-0500 Systolic blood pressure 116 mm[Hg] Nika Olverazpatrick ADVISORY INTERN Work Phone: [facility] Healthcare Encounters Encounter Date Encounter Type Care Provider Facility Start: 09-17-2024 End: 09-17-2024 Initial preventive medicine new pt age 18-39yrs Nika Olverazpatrick ADVISORY INTERN Work Phone: [facility] Comment on above: Wellness examination (Primary Dx); History of substance abuse (CMS/HCC); Mood disorder (CMS/HCC); TYLER (obstructive sleep apnea); Acute bilateral low back pain with left-sided sciatica Start: 09-17-2024 End: 09-17-2024 ambulatory NIKA OJEDA Not Available Start: 09-17-2024 End: 09-17-2024 Bamboo flowsheet Nika Ojeda ADVISORY INTERN Work Phone: [facility] Start: 09-17-2024 End: 09-17-2024 Bamboo flowsheet Nika Ojeda ADVISORY INTERN Work Phone: [facility] Start: 09-17-2024 End: 09-17-2024 Patient encounter status Nika Ojeda ADVISORY INTERN Work Phone: [facility] Start: 08-09-2024 End: 08-09-2024 ambulatory Jose Luis BERNARDO Facility:[facility] Start: 08-09-2023 End: 08-10-2023 ambulatory Greg Peterson [place] Start: 12-26-2022 End: 12-26-2022 ambulatory ODETTE RODRIGUEZ Facility: Start: 11-23-2022 End: 11-23-2022 ambulatory ODETTE RODRIGUEZ Facility: Start: 08-05-2022 Encounter for genera l adult medical examination without abnormal findings ODETTE RODRIGUEZ [facility] Start: 08-03-2022 End: 08-04-2022 ambulatory ODETTE RODRIGUEZ Facility:[facility] Start: 08-03-2022 End: 08-04-2022 Encounter for general adult medical examination without abnormal findings ODETTE RODRIGUEZ Facility: Plan of Treatment Date Care Activity Detail Author Start: 11-12-2024 Influenza vaccination Influenza Vacc ine (#1) [facility] Comment on above: Postponed from 07/08 (Patient Refused) Start: 09-17-2024 End: 09-17-2025 CBC W Auto Differential panel - Blood CBC and differential Lab Routine Wellness examination Expected: 09/17/2024 (Approximate), Expires: 09/17/2025 [facility] Comment on above: Expected: 09/17/2024 (Approximate), Expires: 09/17/2025 Start: 09-17-2024 End: 09-17-2025 Comprehensive metabolic 2000 panel - Serum or Plasma Comprehensive metabolic panel Lab Routine Wellness examination Expected: 09/17/2024 (Approximate), Expires: 09/17/2025 [facility] Comment on above: Expected: 09/17/2024 (Approximate), Expires: 09/17/2025 Start: 09-17-2024 End: 09-17-2025 Hemoglobin A1c/Hemoglobin.total in Blood Hemoglobin A1c Lab Routine Wellness examination Expected: 09/17/2024 (Approximate), Expires: 09/17/2025 [facility] Comment on above: Expected: 09/17/2024 (Approximate), Expires: 09/17/2025 Start: 09-17-2024 End: 09-17-2025 Lipid 1996 panel - Serum or Plasma Lipid panel Lab Routine Wellness examination Expected: 09/17/2024 (Approximate), Expires: 09/17/2025 [facility] Comment on above: Expected: 09/17/2024 (Approximate), Expires: 09/17/2025 Start: 09-17-2024 End: 09-17-2025 TSH W/REFLEX TO FT4 TSH W/REFLEX TO FT4 Lab Routine Wellness examination Expected: 09/17/2024 (Approximate), Expires: 09/17/2025 [facility] Work Phone: Comment on above: Expected: 09/17/2024 (Approximate), Expires: 09/17/2025 Start: 2021 Screening for malign ant neoplasm of cervix [facility] Start: 2012 Screening for malign ant neoplasm of cervix Pap Smear [facility] Payers Date Payer Category Payer Medicaid (Managed Care) [employer] [id number] 2023 [facility] [id number] 2023 Unknown [id number] 1991 Unknown [id number] 1991 Unknown [id number] 1991 Unknown [id number] 1991 Unknown [id number] 1959 Unknown [id number] 1959 Unknown [id number] Social History Date Type Detail Facility Start: 09-17-2024 Tobacco smoking stat [facility] Never smoked tobacco [facility] Start: 09-17-2024 Tobacco use and exposure Smoke less tobacco non-user [facility] Start: 09-17-2024 Alcoholic beverage intake Ex-drinker (finding) [facility] Start: 09-17-2024 History of Social function [facility] Start: 09-17-2024 Tobacco use panel [facility] Start: 1990 Sex assigned at Not on file [facility] History of Present illness Narrative 09-20-2024 Nika Ojeda, ADVISORY INTERN - 09/20/2024 3:50 PM Sommer Ojeda, ADVISORY INTERN - 09/20/2024 3:49 PM Sommer Ojeda, ADVISORY INTERN - 09/17/2024 3:47 PM Sommer Ojeda, ADVISORY INTERN - 09/17/2024 3:30 PM EST Note Date & Type Note Facility 09-20-2024 History of Presen t illness Narrative Associated Problem(s): Acute bilateral low back pain with left-sided sciatica Right Sciatic nerve back pain. Shooting from lumbar back to feet. Reports feet tingle at times. Reports this has been ongoing since she had epidural for . Will trial Zanaflex Associated Problem(s): Mood disorder (CMS/HCC) Requesting referral- has active CPS investigation and is court ordered to receive Addiction Counseling, Mental Health Evaluation and Parenting Classes. Admits: Labile moods Angered easily Outbursts Tearful Panic attacks frequently Highs/lows Insomnia Reports she can go 3 days without sleep but during lows can sleep for 4 days in a row and still not have enough sleep Feels nauseated when eating during highs Has no appetite During low periods reports she overeats frequently Admits compulsive behaviors Repeating sentences frequently Denies: SI/HI/Self harm in past/Current drug use other than THC/Alcohol use Referrals sent to Associated Problem(s): TYLER (obstructive sleep apnea) Sleep: 3-4 hours broken sleep. Reports coughing in sleep Waking up gasping for air Is unsure if she snores; Has hx of TYLER- does not wear CPAP; Discussed with patient cardiovascular and health risks associated with untreated sleep apnea. Pt declines pulm referral or CPAP at this time, agrees to revisit at next OV. Images from the original note were not included. Subjective Patient ID: Adrienne Contreras is a 34 y.o. female who presents for [facility]. HPI Specialists: None Requesting referral- has active CPS investigation and is court ordered to receive Addiction Counseling, Mental Health Evaluation and Parenting Classes. Admits: Labile moods Angered easily Outbursts Tearful Panic attacks frequently Highs/lows Insomnia Reports she can go 3 days without sleep but during lows can sleep for 4 days in a row and still not have enough sleep Feels nauseated when eating during highs Has no appetite During low periods reports she overeats frequently Admits compulsive behaviors Repeating sentences frequently Denies: SI/HI Self harm in past Current drug use other than THC Alcohol use Lives at home alone. 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 Is in school for Forensic Psychology- [employer] Diet: Mostly home cooked meals. Minimal protein. Moderate fruits/vegetables Water: 64-84 ounces per day Caffeine: 24-40 ounces per day Exercise: Nothing consistent Sleep: 3-4 hours broken sleep. Reports coughing in sleep Waking up gasping for air Is unsure if she snores; Has hx of TYLER- does not wear CPAP Right Sciatic nerve back pain. Shooting from lumbar back to feet. Reports feet tingle at times. Reports this has been ongoing since she had epidural for . Will trial Zanaflex Review of Systems Constitutional: Negative for activity change, appetite change, chills, diaphoresis, fatigue, fever and unexpected weight change. HENT: Negative for congestion, ear pain, rhinorrhea, sinus pressure, sinus pain, sneezing, sore throat, trouble swallowing and voice change. Eyes: Negative for visual disturbance. Respiratory: Negative for cough, chest tightness, shortness of breath and wheezing. Cardiovascular: Negative for chest pain, palpitations and leg swelling. Gastrointestinal: Negative for abdominal distention, abdominal pain, blood in stool, constipation, diarrhea and vomiting. Genitourinary: Negative for decreased urine volume, dysuria, flank pain, frequency, hematuria and urgency. Musculoskeletal: Positive for myalgias. Negative for arthralgias, gait problem and joint swelling. Skin: Negative for rash. Neurological: Negative for dizziness, tremors, syncope, weakness, light-headedness and headaches. Psychiatric/Behavioral: Positive for agitation, behavioral problems, decreased concentration and sleep disturbance. Negative for self-injury and suicidal ideas. The patient is nervous/anxious. Hematological: Does not bruise/bleed easily. Endocrine: Negative for cold intolerance, heat intolerance, polydipsia, polyphagia and polyuria. Objective Physical Exam Vitals reviewed. Constitutional: Appearance: Normal appearance. HENT: Head: Normocephalic and atraumatic. Right Ear: Tympanic membrane normal. Left Ear: Tympanic membrane normal. Nose: Nose normal. Mouth/Throat: Mouth: Mucous membranes are moist. Pharynx: Oropharynx is clear. Eyes: Pupils: Pupils are equal, round, and reactive to light. Cardiovascular: Rate and Rhythm: Normal rate and regular rhythm. Pulses: Normal pulses. Heart sounds: Normal heart sounds. Pulmonary: Effort: Pulmonary effort is normal. Breath sounds: Normal breath sounds. Abdominal: General: Abdomen is flat. Bowel sounds are normal. Palpations: Abdomen is soft. Musculoskeletal: General: Normal range of motion. Cervical back: Normal range of motion. Skin: General: Skin is warm and dry. Capillary Refill: Capillary refill takes less than 2 seconds. Neurological: General: No focal deficit present. Mental Status: She is alert and oriented to person, place, and time. Psychiatric: Mood and Affect: Mood normal. Behavior: Behavior normal. Assessment/Plan Problem List Items Addressed This Visit Wellness examination - Primary I have reviewed Ht/Wt/BMI, I have reviewed recommended vaccines for patient's age, as well as all recommended screenings I have reviewed available care everywhere notes as well. I have recommended eating a balanced diet, as well as activity as chronic conditions allow It is recommended that the patient have a yearly eye exam, as well as twice a year dental exams Fu in this office for wellness on a yearly basis Diet: Eat three meals per day. Breakfast, lunch, and dinner. Avoid snacking. Avoid eating after 5/6 pm. Daily protein GOAL 35% of your intake; 30g per meal. Daily calorie GOAL 1,800-2,000 per day. Consider tracking your food intake on MyFtinessPal or LoseIt Water: Increase water intake; GOAL 64-80oz of water per day. Exercise: Increase activity. GOAL 30 minutes, 5 days per week. START SLOW. Start with 5 minutes, 5 days per week. Then increase to 10 days, 5 days per week. Continue to increase until you reach the goal. Increase steps; GOAL 10,000 steps per day. Be sure to get adequate sleep; GOAL 6-8 hours of sleep per night. Relevant Orders TSH W/REFLEX TO FT4 Lipid panel Hemoglobin A1c Comprehensive metabolic panel CBC and differential Mood disorder (CMS/HCC) Requesting referral- has active CPS investigation and is court ordered to receive Addiction Counseling, Mental Health Evaluation and Parenting Classes. Admits: Labile moods Angered easily Outbursts Tearful Panic attacks frequently Highs/lows Insomnia Reports she can go 3 days without sleep but during lows can sleep for 4 days in a row and still not have enough sleep Feels nauseated when eating during highs Has no appetite During low periods reports she overeats frequently Admits compulsive behaviors Repeating sentences frequently Denies: SI/HI/Self harm in past/Current drug use other than THC/Alcohol use Referrals sent to Relevant Orders Ambulatory referral to Behavioral Health History of substance abuse ([facility]) Relevant Orders Ambulatory referral to Behavioral Health TYLER (obstructive sleep apnea) Sleep: 3-4 hours broken sleep. Reports coughing in sleep Waking up gasping for air Is unsure if she snores; Has hx of TYLER- does not wear CPAP; Discussed with patient cardiovascular and health risks associated with untreated sleep apnea. Pt declines pulm referral or CPAP at this time, agrees to revisit at next OV. Acute bilateral low back pain with left-sided sciatica Right Sciatic nerve back pain. Shooting from lumbar back to feet. Reports feet tingle at times. Reports this has been ongoing since she had epidural for . Will trial Zanaflex Relevant Medications tiZANidine (Zanaflex) 2 MG capsule Associated Problem(s): Wellness examination I have reviewed Ht/Wt/BMI, I have reviewed recommended vaccines for patient's age, as well as all recommended screenings I have reviewed available care everywhere notes as well. I have recommended eating a balanced diet, as well as activity as chronic conditions allow It is recommended that the patient have a yearly eye exam, as well as twice a year dental exams Fu in this office for wellness on a yearly basis Diet: Eat three meals per day. Breakfast, lunch, and dinner. Avoid snacking. Avoid eating after 5/6 pm. Daily protein GOAL 35% of your intake; 30g per meal. Daily calorie GOAL 1,800-2,000 per day. Consider tracking your food intake on MyFtinessPal or LoseIt Water: Increase water intake; GOAL 64-80oz of water per day. Exercise: Increase activity. GOAL 30 minutes, 5 days per week. START SLOW. Start with 5 minutes, 5 days per week. Then increase to 10 days, 5 days per week. Continue to increase until you reach the goal. Increase steps; GOAL 10,000 steps per day. Be sure to get adequate sleep; GOAL 6-8 hours of sleep per night. documented in this encounter [facility] Instructions 09-17-2024 Patient Instructions Note Date & Type Note Facility 09-17-2024 Instructions Nika Ojeda NP - 09/17/2024 3:30 PM EST FASTING labs ordered. Nothing to eat or drink for 12 hours prior to blood draw. Water and black coffee ok. INCREASE your cardiovascular ACTIVITY; GOAL 150 minutes per week. AVOID eating less than 2-4 hours before bedtime. AVOID all electronics for 2 hours prior to bedtime. Bed is for SLEEP ONLY. AVOID excessive alcohol intake. AVOID caffeine after 12:00pm. Go to bed when you are tired. If you are not tired that night, push the time back by 30 minutes the next night. Continue to do so until you are able to fall asleep without difficulty. If you wake up in the middle of the night, DO NOT LAY THERE FOR LONGER THAN 40 MINUTES. Once you are up, YOU ARE UP FOR THE DAY. AVOID napping. Get a Lavender diffuser in your bedroom. Magnesium Glycinate 500-1,000mg about 30-60 minutes before bedtime. Brand: Innate Melatonin 5mg-10mg about 30 minutes before bed. Any brand is fine, but once you pick one stick with it. documented in this encounter [facility] Evaluation note Note Date & Type Note Facility Evaluation note Diagnosis Wellness examination- Primary History of substance abuse (CMS/HCC) Other, mixed, or unspecified nondependent drug abuse, unspecified Mood disorder (CMS/HCC) Unspecified episodic mood disorder TYLER (obstructive sleep apnea) Obstructive sleep apnea (adult) (pediatric) Acute bilateral low back pain with left-sided sciatica documented in this encounter [facility] Summary Purpose Family History No Family History Records FoundNo Family History Records FoundNo Family History Records FoundNo Family History Records FoundNo Family History Records Found Advance Directives No Advanced Directives Records FoundNo Advanced Directives Records FoundNo Advanced Directives Records FoundNo Advanced Directives Records FoundNo Advanced Directives Records Found Additional Source Comments INFORMATION SOURCE (unrecogn ized section and content) DATE CREATED AUTHOR 05/27/2020 [facility] DATE CREATED AUTHOR AUTHOR'S ORGANIZ ATION 01/08/2023 [facility] DATE CREATED AUTHOR AUTHOR'S ORGANIZ ATION 08/13/2023 [facility] DATE CREATED AUTHOR AUTHOR'S ORGANIZ ATION 08/11/2024 [facility] DATE CREATED AUTHOR AUTHOR'S ORGANIZ ATION 09/19/2024 [facility] dical Specialists EPIC Care Teams (unrecognized sec tion and content) 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 Relationship Specialty Start Date End Date Malachi Pacheco MD [address] [place] [id number] PCP - General Family Medicine 09/17/24 Nika Ojeda NP [address] [place] [address] Nurse Practitioner Family Medicine 09/17/24 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 This clinical summary was aggregated from multiple sources. Caution should be exercised in using it in the provision of clinical care. This summary normalizes information from multiple sources, and as a consequence, information in this document may materially change the coding, format and clinical context of patient data. In addition, data may be omitted in some cases. CLINICAL DECISIONS SHOULD BE BASED ON THE PRIMARY CLINICAL RECORDS. [facility]. provides no warranty or guarantee of the accuracy or completeness of information in this document.
[2024-10-20 10:47] LABS: Basophils Absolute Auto 0.1 10^3/uL (0.0-0.1); Basophils Percent Auto 0.7 % (0.2-2.0); Eosinophils Absolute Auto 0.1 10^3/uL (0.0-0.7); Eosinophils Percent Auto 1.8 % (0.9-7.0); Hemoglobin 12.5 g/dL (12.0-16.0); Immature Granulocytes Abs Auto 0.02 10^3/uL (0.00-0.03); Immature Granulocytes Pct Auto 0.3 % (0.0-0.5); Lymphocytes Absolute Auto 2.4 10^3/uL (1.2-3.8); Lymphocytes Percent Auto 31.4 % (20.5-60.0); Mean Corpuscular HGB Conc 31.3 g/dL (29.9-35.2); Mean Corpuscular Volume 86.4 fL (81.0-99.0); Mean Platelet Volume 10.6 fL (9.5-13.5); Monocytes Absolute Auto 0.5 10^3/uL (0.3-0.8); Monocytes Percent Auto 6.1 % (1.7-12.0); Neutrophils Absolute Auto 4.5 10^3/uL (1.4-6.5); Neutrophils Percent Auto 59.7 % (43.0-75.0); Platelet Count 280 10^3/uL (150-450); Red Blood Count 4.63 10^6/uL (4.20-5.40); Red Cell Distribution Width 13.3 % (11.0-15.0); White Blood Count 7.6 10^3/uL (4.0-11.0)
[2024-10-20 11:01] LABS: Estimated Average Glucose 103 mg/dL; Glycohemoglobin A1C 5.2 % (4.5-6.2)
[2024-10-20 11:15] LABS: Alanine Aminotransferase 11 U/L (14-59); Albumin Level 3.3 g/dL (3.4-5.0); Alkaline Phosphatase 80 U/L (46-116); Anion Gap 10.3; Aspartate Amino Transferase 10 U/L (15-37); BUN Creatinine Ratio 12.3; Bilirubin Total 0.3 mg/dL (0.2-1.0); Calcium 8.9 mg/dL (8.5-10.1); Chloride 107 mmol/L (98-107); Chol HDL Ratio 2.6; Cholesterol 162 mg/dL (<=200); Estimated GFR (African America >60 (>=60 mL/min/1.73m^2); Estimated GFR (Non-African Ame >60 (>=60 mL/min/1.73m^2); Globulin 3.2 g/dL; Glucose 88 mg/dL (74-106); HDL Cholesterol 63 mg/dL (40-60); Potassium 4.3 mmol/L (3.5-5.1); Sodium 144 mmol/L (136-145); TSH W/ REFLEX FT4 1.035 uIU/mL (0.358-3.740); Total Protein 6.5 g/dL (6.4-8.2); Triglycerides 42 mg/dL (<=150); VLDL CHOLESTEROL 8.4 mg/dL
== END 2024-10-20 10:33 | disposition home or self-care (01) ==
LOC: LAB 10:34
DX: Z00.00 Encounter for general adult medical examination without abnormal findings (principal)
CPT/HCPCS: 36415; 80053; 80061; 83036; 84443; 85025